=== PATIENT | female | born 1965 | race Two or more races ===

== ENCOUNTER 2019-06-06 02:06 | Emergency (ER) | payer OTHER ==
[~2019-06-06] VITALS: Ht 160 cm; Wt 64.4 kg
[2019-06-06] MEDS ORDERED: PEPCID AC20 MG (02:11)
[2019-06-06] MEDS ORDERED: DICY20TA (02:11)
== END 2019-06-06 09:18 | disposition home or self-care (01) ==
LOC: ER 02:06
DX: S01.02XA Laceration with foreign body of scalp, initial encounter (principal); W18.09XA Striking against other object with subsequent fall, initial encounter; Y93.89 Activity, other specified; Y92.89 Other specified places as the place of occurrence of the external cause; Y99.8 Other external cause status; F10.129 Alcohol abuse with intoxication, unspecified
CPT/HCPCS: G0168; 70450

== ENCOUNTER 2019-06-16 11:08 | Emergency (ER) | payer OTHER ==
[~2019-06-16] VITALS: Ht 160 cm; Wt 65.3 kg
[~2019-06-16 11:08] MED LIST: DICY20TA; PEPCID AC20 MG
== END 2019-06-16 13:21 | disposition home or self-care (01) ==
LOC: ER 11:08
DX: Z48.02 Encounter for removal of sutures (principal)

== ENCOUNTER → 2022-12-31 | Emergency (ER) | payer OTHER ==
[~2022-12-31] VITALS: Ht 160 cm; Wt 65.8 kg
[~2022-12-31] MED LIST changes: +DICLOFENAC SODI75 MG PO; +OMEPRAZOLE-BIC1 EAC1 PO
== END | disposition home or self-care (01) ==
LOC: ER 07:42
DX: S09.8XXA Other specified injuries of head, initial encounter (principal); W18.39XA Other fall on same level, initial encounter; Y93.F1 Activity, caregiving, bathing; Y92.012 Bathroom of single-family (private) house as the place of occurrence of the external cause; M54.50 Low back pain, unspecified